=== PATIENT | male | born 1995 | race Asian ===

== ENCOUNTER 2017-01-31 14:37 | Emergency (ER) | payer MEDICAID ==
[~2017-01-31] VITALS: Ht 167.6 cm; Wt 84.8 kg
[2017-01-31 14:47] VITALS: BP 127/78
== END 2017-01-31 17:12 | disposition home or self-care (01) ==
LOC: ER 14:37
DX: S61.211D Laceration without foreign body of left index finger without damage to nail, subsequent encounter (principal); X58.XXXD Exposure to other specified factors, subsequent encounter